=== PATIENT | female | born 1950 | race Caucasian/White ===

== ENCOUNTER 2024-12-07 05:48 | Emergency (ER) | payer OTHER ==
[~2024-12-07] VITALS: Ht 157.5 cm; Wt 86.0 kg
[2024-12-07] MEDS: ACETAMINOPHEN 500MG TABLET PO ONE (08:28)
[2024-12-07 09:23] VITALS: O2SAT 98
[2024-12-07] MEDS: PROPOFOL 200MG/20ML VIAL IV NR (10:15)
[2024-12-07 11:53] VITALS: BP 135/86; PULSE 98; RESP 23; TEMP 36.7; O2SAT 97
== END 2024-12-07 12:32 | disposition home or self-care (01) ==
LOC: ER 05:48
DX: S43.085A Other dislocation of left shoulder joint, initial encounter (principal); E11.9 Type 2 diabetes mellitus without complications; I10 Essential (primary) hypertension; Z88.5 Allergy status to narcotic agent; W01.0XXA Fall on same level from slipping, tripping and stumbling without subsequent striking against object, initial encounter; Y93.89 Activity, other specified; Y92.009 Unspecified place in unspecified non-institutional (private) residence as the place of occurrence of the external cause; Y99.8 Other external cause status
CPT/HCPCS: 99285; 23650; 71045; 73030; 73060; 99152; J2704